=== PATIENT | male | born 1980 | race Caucasian/White ===

== ENCOUNTER 2017-04-01 09:23 | Emergency (ER) | payer OTHER, BC ==
[~2017-04-01] VITALS: Ht 182.9 cm; Wt 109.0 kg
[2017-04-01] MEDS ORDERED: PREG100CA PO (09:31)
[2017-04-01] MEDS ORDERED: MORPHINE 4 MG/ML 1ML SYRINGE IV ONE (09:45)
--- NOTE | 2017-04-01 10:12 | REP ---
CT Head without contrast HISTORY: Trauma COMPARISON: None There is no intraparenchymal hemorrhage, acute infarct, mass or midline shift. The ventricular system is normal in appearance. There is no extra cerebral collection. There is no fracture. The visualized sinuses are clear. IMPRESSION: There is no intracranial lesion. Signed by Gaurav Alamo MD 04/01/2017 10:03 A
--- NOTE | 2017-04-01 10:19 | REP ---
CT cervical spine without contrast HISTORY: Trauma COMPARISON: None There is no acute fracture or subluxation. There is no disc bulge or herniation. The spinal canal and neural foramina are patent. The intervertebral discs and vertebral bodies are normal in height. IMPRESSION: There is no acute fracture or subluxation. Signed by Gaurav Alamo MD 04/01/2017 10:11 A
--- NOTE | 2017-04-01 10:41 | REP ---
CT CHEST WITHOUT IV CONTRAST: CT chest is performed without IV contrast. I cannot evaluate the thoracic aorta adequately. Heart is normal in size. There is no aneurysm of the thoracic aorta. No adenopathy is seen in the chest. There is no pleural or pericardial effusion. No infiltrate or pneumothorax is seen. There is mild focal pleural thickening along the minor fissure on the right. The visualized osseous structures appear intact. Visualized upper abdominal structures are grossly unremarkable. IMPRESSION: No acute findings. I cannot evaluate the thoracic aorta without IV contrast. Signed by Damon Ferris MD 04/01/2017 05:40 P
[2017-04-01] MEDS ORDERED: KETOROLAC 30 MG/ML VIAL (J1885) IV ONE (10:45)
[2017-04-01] MEDS ORDERED: PERCOCET 5MG/325MG TAB PO ONE (10:45)
--- NOTE | 2017-04-01 11:41 | REP ---
Left shoulder three views: There is a type five acromioclavicular separation with elevation of the distal clavicle. There is no fracture. No dislocation. Mineralization is normal. No calcifications or foreign bodies. Impression: 11/09 acromioclavicular separation. Signed by Damon Martel MD 04/01/2017 11:33 A
--- NOTE | 2017-04-01 11:44 | REP ---
Lumbar spine five views: Comparison is 10/29/2011. Vertebral body heights, interspacing alignment are normal. There is mild L1-2 degenerative disc disease. There is no spondylolysis or spondylolisthesis. The pedicles, facets and sacroiliac articulations are unremarkable. Impression: Mild L1-2 degenerative disc disease. No compression deformity or listhesis. Signed by Damon Martel MD 04/01/2017 11:35 A
--- NOTE | 2017-04-01 12:04 | REP ---
RIGHT RIB SERIES: Four views of the right ribs are performed and demonstrate no fracture or bone lesion. IMPRESSION: No evidence of right rib fracture. Signed by Damon Ferris MD 04/01/2017 05:41 P
[2017-04-01] MEDS ORDERED: NORCOTAB PO (12:33)
[2017-04-01 12:41] VITALS: BP 143/79
[2017-04-26] MEDS ORDERED: IBUP-1022 PO (08:43)
[2017-04-26] MEDS ORDERED: OXYC1TAB23 PO (08:43)
[2017-04-26] MEDS ORDERED: STOO100C PO (11:57)
[2017-05-03] MEDS ORDERED: MS C15TA8 PO (08:24)
[2017-05-03] MEDS ORDERED: PERC5TAB12 PO (08:24)
[2017-05-03] MEDS ORDERED: IBUP-1022 PO (08:31)
== END 2017-04-01 12:57 | disposition home or self-care (01) ==
LOC: M ED 09:23
DX: S43.102A Unspecified dislocation of left acromioclavicular joint, initial encounter (principal); S20.211A Contusion of right front wall of thorax, initial encounter; W17.89XA Other fall from one level to another, initial encounter; Y92.59 Other trade areas as the place of occurrence of the external cause; Y93.89 Activity, other specified; Y99.0 Civilian activity done for income or pay; G89.29 Other chronic pain; M54.9 Dorsalgia, unspecified; M51.36 Other intervertebral disc degeneration, lumbar region; Z79.899 Other long term (current) drug therapy; Z98.890 Other specified postprocedural states
CPT/HCPCS: 70450; 71100; 71250; 72110; 72125; 73030; 96374; 96375; 99283; J1885

== ENCOUNTER → 2021-02-28 | Outpatient (REF) | payer OTHER, BC ==
[~2021-02-28] MED LIST: HYDR-3715 PO; IBUP-1022 PO; MM S100C PO; MS C15TA8 PO; OXYC1TAB23 PO; PERC5TAB12 PO; PREG100CA PO
== END ==
LOC: M LAB REF 16:47
PROVIDERS: ATTEND Family Medicine
DX: R74.01 Elevation of levels of liver transaminase levels (principal)

== ENCOUNTER → 2021-03-07 | Outpatient (CLI) | payer BC, MEDICARE ==
--- NOTE | 2021-03-07 19:41 | REP ---
INDICATION: RIGHT FLANK PAIN. COMPARISON: Comparison radiographs are from April 01, 2017. TECHNIQUE: Four views of the right rib cage are presented. FINDINGS: The right lung mcfadden are clear. Pleural angles are sharp. There is no evidence of pneumothorax or hydrothorax on the right. Multiple views of the right rib cage show no visible rib fracture or bony destructive lesion. IMPRESSION: Negative right rib radiographs. <Electronically signed by Zia Steele > 03/07/21 193
== END ==
LOC: M PLAIMG 11:02
DX: R10.9 Unspecified abdominal pain (principal)

== ENCOUNTER → 2021-08-04 | Outpatient (REF) | payer MEDICARE | LOC: M LAB REF 16:38 | PROVIDERS: ATTEND Family Medicine | DX: Z01.818 Encounter for other preprocedural examination (principal) ==

== ENCOUNTER → 2022-09-20 | Outpatient (CLI) | payer OTHER | LOC: M PLARAD 09:28 | PROVIDERS: ATTEND Nurse Practitioner Family | DX: M54.16 Radiculopathy, lumbar region (principal) ==

== ENCOUNTER 2023-12-13 09:32 | Day surgery (SDC) | payer MEDICARE ==
[~2023-12-13] VITALS: Ht 182.9 cm; Wt 119.5 kg
[~2023-12-13 09:32] MED LIST changes: +AMIT75TA PO; +NAPR-885 PO; +OSTETAB2 PO; +PREG150C2 PO
[2023-12-13] MEDS: NS 1,000 ML IV ONE (10:50)
[2023-12-13 12:04] VITALS: TEMP 98
[2023-12-13 12:28] VITALS: BP 152/79; O2SAT 97
== END 2023-12-13 12:33 | disposition home or self-care (01) ==
LOC: M OPP 09:32
PROVIDERS: ATTEND Surgery
DX: Z12.11 Encounter for screening for malignant neoplasm of colon (principal); Z87.891 Personal history of nicotine dependence; Z79.1 Long term (current) use of non-steroidal anti-inflammatories (NSAID); Z79.899 Other long term (current) drug therapy

== ENCOUNTER → 2024-11-06 | Outpatient (REF) | payer MEDICARE ==
[~2024-11-06] MED LIST changes: +PREG-35 PO; -PREG100CA PO
== END ==
LOC: M LAB REF 12:47
PROVIDERS: ATTEND Family Medicine
DX: R68.82 Decreased libido (principal)

== ENCOUNTER → 2025-05-21 | Outpatient (CLI) | payer MEDICARE ==
[~2025-05-21] MED LIST changes: -IBUP-1022 PO; +IBUP600T42 PO
== END ==
LOC: M RAD 08:06
PROVIDERS: ATTEND Family Medicine
DX: R94.5 Abnormal results of liver function studies (principal); K76.0 Fatty (change of) liver, not elsewhere classified; K82.8 Other specified diseases of gallbladder

== ENCOUNTER → 2025-05-24 | Outpatient (REF) | payer MEDICARE | LOC: M LAB REF 12:13 | PROVIDERS: ATTEND Family Medicine | DX: R68.82 Decreased libido (principal) ==